=== PATIENT | male | born 1965 | race African-American/Black ===

== ENCOUNTER 2018-04-25 11:23 | Emergency (ER) | payer MEDICARE ==
--- NOTE | 2018-04-25 11:58 | EDM.PDOC ---
ED HPI GENERAL MEDICAL PROBLEM - General Chief Complaint: Chest Pain Stated Complaint: CHEST PAIN Time Seen by Provider: 04/25/18 11:39 Source of Information: Reports: Patient, RN Notes Reviewed - History of Present Illness INITIAL COMMENTS - FREE TEXT/NARRATIVE: 53-year-old male comes in with left-sided chest pain. He had onset of this discomfort last evening that continues today. Pain is worse with deep breathing. He does not feel short of breath. The pain does not radiate. No recent injuries that he is aware of. He has not been coughing and no recent fever or chills. No abdominal pain nausea or vomiting. He does have history of coronary artery disease, previous heart attack 9 years ago. He does not smoke. 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: EKG Left Chest Pain Score (Numeric/FACES): 8 - Related Data Allergies Allergy/AdvReac Type Severity Reaction Status Date / Time aspirin Allergy Rash Verified 04/25/18 11:36 Home Meds: Home Meds cloNIDine [Catapres] 0.1 mg PO DAILY 04/25/18 [History] Past Medical History Cardiovascular History: Reports: Hypertension, [place] Neurological History: Reports: CVA Social & Family History - Tobacco Use Smoking Status *Q: Current Every Day Smoker Years of Tobacco use: 40 Packs/Tins Daily: 0.5 - Recreational Drug Use Recreational Drug Use: No ED ROS GENERAL - Review of Systems Review Of Systems: See Below Constitutional: Denies: Fever, Chills HEENT: Denies: Sinus Problem, Throat Pain Respiratory: Reports: Pleuritic Chest Pain. Denies: Shortness of Breath, Wheezing, Cough Cardiovascular: Reports: Chest Pain GI/Abdominal: Denies: Abdominal Pain, Nausea, Vomiting Musculoskeletal: Denies: Neck Pain, Shoulder Pain, Arm Pain, Back Pain Skin: Reports: No Symptoms Neurological: Denies: Numbness, Tingling ED EXAM, GENERAL - Physical Exam Exam: See Below General Appearance: Alert, Mild Distress Throat/Mouth: Normal Inspection Head: Atraumatic Neck: Supple, Full Range of Motion Respiratory/Chest: No Respiratory Distress, Lungs Clear, Normal Breath Sounds, Other (Quite markedly tenderness of the left sternal border, non-tender right sternal border, chest wall otherwise nontender) Cardiovascular: Regular Rate, Rhythm GI/Abdominal: Soft, Non-Tender Back Exam: Normal Inspection Extremities: Normal Inspection. No: Pedal Edema, Leg Pain Neurological: Alert, Oriented, No Motor/Sensory Deficits Skin Exam: Warm, Dry EKG INTERPRETATION EKG Date: 04/25/18 Rhythm: NSR P-Wave: Present QRS: Other (He does have Q waves present in V2 and V3 and also small Q waves in lead 3) ST-T: Other (Very mild ST elevation V2 and V3.) Course - Vital Signs Last Recorded V/S: Last Vital Signs Temp 98.7 F 04/25/18 11:27 Pulse 76 04/25/18 11:27 Resp 16 04/25/18 11:27 BP 177/91 H 04/25/18 11:27 Pulse Ox 98 04/25/18 11:27 - Orders/Labs/Meds Orders: Active Orders 24 hr Category Date Time Status EKG Documentation Completion [RC] ASDIRECTED Care 04/25/18 11:44 Active Chest 1V Frontal [CR] Stat Exams 04/25/18 12:17 Taken EKG 12 Lead [EK] Stat Ther 04/25/18 11:44 Ordered Labs: Laboratory Tests 04/25/18 04/25/18 Range/Units 12:05 12:05 D-Dimer, Quantitative < 0.19 L (0.19-0.50) mg/L Sodium 140 (136-145) mEq/L Potassium 3.9 (3.5-5.1) mEq/L Chloride 105 (98-107) mEq/L Carbon Dioxide 26 (21-32) mEq/L Anion Gap 12.9 (5-15) BUN 18 (7-18) mg/dL Creatinine 1.2 (0.7-1.3) mg/dL Est Cr Clr Drug Dosing 61.93 mL/min Estimated GFR (MDRD) > 60 (>60) mL/min BUN/Creatinine Ratio 15.0 (14-18) Glucose 88 (74-106) mg/dL Calcium 8.9 (8.5-10.1) mg/dL Total Bilirubin 0.6 (0.2-1.0) mg/dL AST 25 (15-37) U/L ALT 29 (16-63) U/L Alkaline Phosphatase 120 H (46-116) U/L Troponin I < 0.017 (0.00-0.056) ng/mL Total Protein 6.9 (6.4-8.2) g/dl Albumin 3.7 (3.4-5.0) g/dl Globulin 3.2 gm/dL Albumin/Globulin Ratio 1.2 (1-2) - Re-Assessments/Exams Free Text/Narrative Re-Assessment/Exam: 04/25/18 13:23 EKG did show the Q waves anteriorly as documented, no acute changes apparent, chest x-ray normal, troponin and d-dimer did come back negative. He does have a very strong component of left sternal border chest wall tenderness. Discharge instructions as documented. Departure - Departure Time of Disposition: 13:24 Disposition: Home, Self-Care 01 Condition: Fair Clinical Impression: Costochondritis, Atypical chest pain Referrals: PCP,None [Primary Care Provider] - Forms: ED Department Discharge Additional Instructions: Advil or ibuprofen 600 mg 3 times daily with food for pain and inflammation, so may alternate ice and heat and that will also help. Her discomfort should gradually resolve over the next 3-4 days. Follow-up with your primary provider appointment as planned, return to ED as needed if symptoms worsening in any way. Also research the Mediterranean diet. That is a healthier diet than the typical [place] diet and has shown benefit of reducing heart disease and risk for heart attack and stroke. - My Orders Last 24 Hours: My Active Orders 04/25/18 11:44 EKG Documentation Completion [RC] ASDIRECTED EKG 12 Lead [EK] Stat 04/25/18 12:17 Chest 1V Frontal [CR] Stat - Assessment/Plan Last 24 Hours: My Active Orders 04/25/18 11:44 EKG Documentation Completion [RC] ASDIRECTED EKG 12 Lead [EK] Stat 04/25/18 12:17 Chest 1V Frontal [CR] Stat
--- NOTE | 2018-04-26 17:16 | CR ---
Chest: Portable view of the chest was obtained. Comparison: No previous chest x-ray. Heart size is normal. Tortuous thoracic aorta is seen. Lungs are clear. Bony structures are grossly intact. Impression: 1. Nothing acute is appreciated on portable chest x-ray. Diagnostic code #1
== END 2018-04-25 13:39 | disposition home or self-care (01) ==
LOC: JD.ED 11:23
DX: M94.0 Chondrocostal junction syndrome [Tietze] (principal); F17.210 Nicotine dependence, cigarettes, uncomplicated; I10 Essential (primary) hypertension; Z79.899 Other long term (current) drug therapy; Z88.6 Allergy status to analgesic agent
CPT/HCPCS: 36415; 71045; 71045-26; 80053; 84484; 85379; 93005; 93010; 99284-25; 99285-25